=== PATIENT | female | born 1950 | race Caucasian/White ===

== ENCOUNTER 2024-03-21 06:18 | Inpatient (IN) ==
[~2024-03-21 06:18] MED LIST: Naloxone 0.4 mg VIAL 0.4 mg/ml 1 ml VIAL IV PRN; Ondansetron 4 mg VIAL 2 MG/ML 2 ml VIAL IV PRN; fentaNYL 100 mcg/2 ml 50 MCG/ML VIAL IV PRN
[2024-03-21] MEDS ORDERED: Rocuronium 50 mg VIAL 10 mg/ml 5 ml VIAL (50 mg) ONE (07:06)
[2024-03-21] MEDS ORDERED: Sevoflurane BOTTLE ONE (07:06)
[2024-03-21] MEDS ORDERED: fentaNYL 100 mcg/2 ml 50 MCG/ML VIAL ONE (07:06)
[2024-03-21] MEDS ORDERED: Desflurane 240 ML INH ONE (07:06)
[2024-03-21] MEDS ORDERED: Bupivacaine 0.5% PF 10 ML SDV VIAL INJ ONE (07:06)
[2024-03-21] MEDS ORDERED: Sterile Water for Inj 10 ML ONE (07:06)
[2024-03-21] MEDS ORDERED: Phenylephrine IV 10 MG/ML 1 ml VIAL ONE (07:06)
[2024-03-21] MEDS ORDERED: Propofol 10 MG/ML 20 ML BTL ONE ×2 (07:06→12:54)
[2024-03-21] MEDS ORDERED: Dexamethasone IV 4 MG/ML VIAL 1 ml VIAL ONE ×2 (07:06→07:41)
[2024-03-21] MEDS ORDERED: Lidocaine 2% PF 5 ML VIAL ONE (07:06)
[2024-03-21] MEDS ORDERED: Ondansetron 4 mg VIAL 2 MG/ML 2 ml VIAL ONE (07:06)
[2024-03-21] MEDS ORDERED: Midazolam 2 mg/2 ml VIAL 1 mg/ml 2 ml VIAL (2 mg) ONE ×2 (07:06→07:41)
[2024-03-21] MEDS ORDERED: Famotidine IV 10 MG/ML 2 ml VIAL (20 mg) ONE (07:16)
[2024-03-21] MEDS ORDERED: Tranexamic Acid 1 GM/100ML BAG 2,000 MG/200 ML BAG IV ONE (07:16)
[2024-03-21] MEDS ORDERED: ceFAZolin 2 GM in NS PREMIX 2 GM/100 ML BAG IVPB ONE (07:16)
[2024-03-21] MEDS: Famotidine IV 10 MG/ML 2 ml VIAL (20 mg) IV ONE (07:18)
[2024-03-21] MEDS: Lactated Ringers 1000 ml BAG 1,000 ML IV SCH ×2 (07:20→16:21)
[2024-03-21 07:29] LABS: Rapid COVID-19 Molecular Undetected (Undetected)
[2024-03-21] MEDS ORDERED: Vancomycin 1,000 MG VIAL ONE (07:30)
[2024-03-21] MEDS ORDERED: ROPIVACAINE 5 MG/ML 30 ML BTL (0.5%) ONE (07:41)
[2024-03-21] MEDS ORDERED: Acetaminophen IV 1 GM/100ML 1,000 MG/100 ML BAG IV ONE (11:20)
[2024-03-21] MEDS ORDERED: Lactulose 30 ml UDC PO PRN (13:29)
[2024-03-21] MEDS ORDERED: Morphine 2 MG/ML SYRINGE IV PRN (13:29)
[2024-03-21] MEDS ORDERED: Ondansetron 4 mg VIAL 2 MG/ML 2 ml VIAL IV PRN (13:29)
[2024-03-21] MEDS ORDERED: Magnesium Hydroxide LIQ 30 ML UDC PO PRN (13:29)
[2024-03-21] MEDS ORDERED: Ondansetron ODT 4 mg TAB 4 MG TAB PO PRN (13:29)
[2024-03-21] MEDS ORDERED: Albuterol HFA INHALER 8 gm MDI INH PRN (14:38)
[2024-03-21] MEDS: Buffered Lidocaine 1% SYRIN 1 ml INTRADERM ONE (15:23)
[2024-03-21] MEDS: PTO: Azelastine 0.1% Nasal (NF) 30 ML BTL BOTH NARES SCH (18:18)
[2024-03-21] MEDS: ceFAZolin 1 GM ADVAN 1 GM in NS 0.9% 50 ML 50 ML IVPB SCH (18:19)
[2024-03-21] MEDS: NON FORMULARY MED (Azelastine 137 mcg (0.1 %) Aerosol,Spray) INTRANASAL SCH (20:11)
[2024-03-21] MEDS: Magnesium Hydroxide LIQ 30 ML UDC PO SCH (20:47)
[2024-03-21] MEDS: CALCIUM CARBONATE VITAMIN D3 PO SCH (22:28)
[2024-03-22 06:06] LABS: Hemoglobin 12.2 g/dL (11.5-14.3); Mean Platelet Volume 8.7 fL (7.5-11.2); Platelet Count 301 10^3/uL (150-450)
[2024-03-22 06:23] LABS: Calcium 8.4 mg/dL (8.6-10.3); Creatinine, Serum 0.56 mg/dL (0.51-0.95); Potassium 3.9 mmol/L (3.5-5.0); eGFR CKD-EPI 97.5 (>60)
[2024-03-22] MEDS: FLUTICASONE SALMETEROL INH SCH (07:55)
[2024-03-22] MEDS: Vitamin THERAPEUTIC TAB PO SCH (07:56)
[2024-03-22] MEDS ORDERED: Valsartan/HCTZ 160/25(NF) TAB PO SCH ×2 (09:00)
[2024-03-22 10:00] VITALS: BP 138/72
== END 2024-03-22 12:45 | disposition home or self-care (01) | DRG 470 ==
LOC: AA 06:18 → INTOOBSV 06:18 → SSU 13:49
PROVIDERS: ADMIT Orthopaedic Surgery; ATTEND Orthopaedic Surgery